=== PATIENT | female | born 1975 | race Caucasian/White ===

== ENCOUNTER 2023-07-07 13:42 | Emergency (ER) | payer OTHER ==
[~2023-07-07] VITALS: Ht 177.8 cm; Wt 125.2 kg
[2023-07-07 14:11] LABS: HEMATOCRIT 41.3 % (36-48); MEAN CORPUSCULAR HGB CONC 34.9 g/dL (32.0-36.0); MEAN CORPUSCULAR VOLUME 91.8 fL (79-99); RED BLOOD CELL COUNT(AUTO) 4.5 MIL/uL (4.00-5.50); RED CELL DISTRIBUTION WIDTH 13.2 % (11.0-15.5); WHITE BLOOD COUNT (AUTO) 7.1 K/uL (4.8-10.8)
[2023-07-07 14:21] LABS: CREATININE 0.9 mg/dL (0.5-1.0); POTASSIUM 4.4 mmol/L (3.5-5.1)
[2023-07-07 14:26] LABS: ALBUMIN 4.2 g/dL (3.5-5.0); BILIRUBIN,TOTAL 0.8 mg/dL (0.2-1.0); TOTAL PROTEIN, SERUM 7.7 g/dL (6.0-8.3)
[2023-07-07] MEDS: HYDRALAZINE 20MG/ML VIAL IV ONE (14:32)
[2023-07-07] MEDS ORDERED: HYDR-3420 PO (15:47)
[2023-07-07 15:57] VITALS: BP 187/102; PULSE 84; RESP 18; O2SAT 98
== END 2023-07-07 16:25 | disposition home or self-care (01) ==
LOC: EDH 13:42
DX: I10 Essential (primary) hypertension (principal); R51.9 Headache, unspecified; M79.89 Other specified soft tissue disorders; Z98.890 Other specified postprocedural states
CPT/HCPCS: 99285; 96374; 71045; 84484; 80053; 83880; 85027; 81025; 36415; 93005; J0360